=== PATIENT | female | born 1950 | race Caucasian/White ===

== ENCOUNTER 2016-07-14 12:43 | Emergency (ER) | payer OTHER ==
[~2016-07-14] VITALS: Ht 172.7 cm; Wt 105.0 kg
[2016-07-14] MEDS ORDERED: SODIUM CHLORIDE 0.9% 1,000 ML IV ONE (12:56)
[2016-07-14] MEDS ORDERED: LORazepam 2 MG/ML, 1ML IVPush ONE (13:00)
[2016-07-14] MEDS ORDERED: PRAV20TA2 PO (13:06)
[2016-07-14] MEDS ORDERED: LOSA100T6 PO (13:06)
[2016-07-14] MEDS ORDERED: OMEP-110 PO (13:06)
[2016-07-14] MEDS ORDERED: VENL75CA PO (13:06)
[2016-07-14] MEDS ORDERED: LORazepam 2 MG/ML, 1ML ONE (13:36)
[2016-07-14 13:42] LABS: BLOOD UREA NITROGEN 13 mg/dL (7-18)
[2016-07-14 13:45] LABS: ASPARTATE AMINO TRANSFERASE 21 U/L (15-37)
[2016-07-14 13:48] LABS: IS PT STATUS REG ER OR PRE ER? YES
[2016-07-14] MEDS ORDERED: PLEASE ENTER ALLERGIES MC SCH ×2 (14:00)
[2016-07-14 16:15] VITALS: BP 170/100
== END 2016-07-15 06:13 | disposition left against medical advice (07) ==
LOC: ED 14:26 → UNDOADMIN 14:27 → EDIP 14:27 → ED 14:48 → UNDODISIN 07-15 06:13
DX: I21.4 Non-ST elevation (NSTEMI) myocardial infarction (principal); I10 Essential (primary) hypertension; K21.9 Gastro-esophageal reflux disease without esophagitis; J45.909 Unspecified asthma, uncomplicated; Z90.710 Acquired absence of both cervix and uterus; F17.200 Nicotine dependence, unspecified, uncomplicated
CPT/HCPCS: 36415; 71010; 80053; 83880; 84484; 85025; 85610; 93005; 96374; 99285; J2060